=== PATIENT | female | born 1960 | race African-American/Black ===

== ENCOUNTER → 2021-04-04 | Day surgery (SDC) | payer OTHER ==
[2021-04-01 10:47] VITALS: BMI 30.2
[2021-04-04 10:28] VITALS: TEMP 98
[2021-04-04 10:51] VITALS: BP 140/69; PULSE 96
== END | disposition home or self-care (01) ==
LOC: FASU-ENDO 08:48
PROVIDERS: ATTEND Internal Medicine Gastroenterology
PROC: 0DJ08ZZ Inspection of Upper Intestinal Tract, Via Natural or Artificial Opening Endoscopic (ICD-10-PCS; principal; 2021-04-04 10:02)
DX: D64.9 Anemia, unspecified (principal)
CPT/HCPCS: 82962

== ENCOUNTER 2021-05-16 09:05 | Emergency (ER) | payer OTHER ==
[2021-05-16 09:47] VITALS: BMI 30.2
[2021-05-16 10:51] LABS: INR 1.2 (0.83-1.09); PROTHROMBIN TIME (PATIENT) 13.8 SEC (9.7-13.0)
[2021-05-16 10:53] LABS: ACTIVATED PTT 31.1 SECONDS (25.2-36.5)
[2021-05-16 11:02] LABS: ALBUMIN 2.8 g/dl (3.4-5.0); BILIRUBIN,TOTAL 0.6 mg/dl (0.2-1); CALCIUM 9.5 mg/dl (8.5-10)
[2021-05-16 11:46] LABS: BASO % 0.9 % (0-2.0); EOS % 1.2 % (0-4.5); HEMATOCRIT 24.6 % (32.4-45.2); LYMPH % 19.2 % (8-40); MCH 26.2 pg (25.7-33.7); MCHC 32.5 g/dl (32.0-36.0); MEAN CELL VOLUME 80.7 fl (80-96); MEAN PLT VOLUME 7.8 fl (7.5-11.1); MONO % 6.3 % (3.8-10.2); NEUT % 72.4 % (42.8-82.8); PLATELET COUNT 515 10^3/uL (134-434); RBC 3.05 M/mm3 (3.60-5.2); RDW 17.7 % (11.6-15.6); WHITE BLOOD COUNT 8.6 K/mm3 (4.0-10.0)
[2021-05-16 12:05] VITALS: BP 110/64; PULSE 100; TEMP 97.8
[2021-05-16 12:14] LABS: SARS AG REFLEX COV19 SEND OUT negative (Negative)
[2021-05-17 11:08] LABS: SARS-CoV-2 NAA Not Detected (Not Detected)
== END 2021-05-16 12:35 ==
LOC: FER 09:05
DX: D64.9 Anemia, unspecified (principal)
CPT/HCPCS: 36415; 80053; 85025; 85610; 85730; 86850; 86900; 86901; 87426; 99284-25; C9803; U0003; U0005

== ENCOUNTER 2021-05-20 09:58 | Day surgery (SDC) | payer OTHER ==
[2021-05-16 13:28] VITALS: BMI 30.2
[2021-05-20] MEDS ORDERED: PROPOFOL 20 ML ONE ×4 (11:35)
[2021-05-20] MEDS ORDERED: LIDOCAINE HCL/PF 2% SDV 5ML VIAL ONE (11:35)
[2021-05-20 12:55] VITALS: TEMP 98.2
[2021-05-20 13:13] VITALS: BP 114/59; PULSE 69
== END 2021-05-20 13:40 | disposition home or self-care (01) ==
LOC: FASU-ENDO 09:58
PROVIDERS: ATTEND Internal Medicine Gastroenterology
PROC: 0DB68ZX Excision of Stomach, Via Natural or Artificial Opening Endoscopic, Diagnostic (ICD-10-PCS; 2021-05-20)
PROC: 0DB48ZX Excision of Esophagogastric Junction, Via Natural or Artificial Opening Endoscopic, Diagnostic (ICD-10-PCS; 2021-05-20)
PROC: 0DB98ZX Excision of Duodenum, Via Natural or Artificial Opening Endoscopic, Diagnostic (ICD-10-PCS; principal; 2021-05-20 12:18)
DX: D64.9 Anemia, unspecified (principal); K29.50 Unspecified chronic gastritis without bleeding; K20.90 Esophagitis, unspecified without bleeding
CPT/HCPCS: 82962; 88305-TC; 88342-TC

== ENCOUNTER 2021-08-22 08:09 | Day surgery (SDC) | payer OTHER ==
[2021-08-20 14:55] VITALS: BMI 28.3
[2021-08-22] MEDS ORDERED: LIDOCAINE HCL/PF 2% SDV 5ML VIAL ONE (08:58)
[2021-08-22] MEDS ORDERED: PROPOFOL 20 ML ONE ×4 (08:59)
[2021-08-22 10:55] VITALS: BP 117/66; PULSE 89; TEMP 97.9
== END 2021-08-22 11:10 | disposition home or self-care (01) ==
LOC: FASU-ENDO 08:09
PROVIDERS: ATTEND Internal Medicine Gastroenterology
PROC: 0DJD8ZZ Inspection of Lower Intestinal Tract, Via Natural or Artificial Opening Endoscopic (ICD-10-PCS; principal; 2021-08-22 09:59)
DX: Z53.8 Procedure and treatment not carried out for other reasons (principal); D64.9 Anemia, unspecified; K59.00 Constipation, unspecified; R10.9 Unspecified abdominal pain
CPT/HCPCS: 82962